=== PATIENT | female | born 1995 | race Two or more races ===

== ENCOUNTER 2022-11-21 18:41 | Emergency (ER) | payer OTHER ==
[~2022-11-21] VITALS: Ht 152.4 cm; Wt 54.4 kg
--- NOTE | 2022-11-21 19:05 | NUR ---
BIBS C/O COUGH, CONGESTION, CHILLS, DIARRHEA X 2 DAYS.
--- NOTE | 2022-11-21 19:30 | NUR ---
SWAB FOR COVID19 SENT TO LAB
--- NOTE | 2022-11-21 22:25 | NUR ---
Patient discharged to home in stable condition. Written and verbal after care instructions given. Patient verbalizes understanding of instruction.
[2022-11-21 22:41] VITALS: BP 110/60
== END 2022-11-21 22:25 | disposition home or self-care (01) ==
LOC: ER 18:43
DX: B34.9 Viral infection, unspecified (principal); Z60.2 Problems related to living alone; Z20.822 Contact with and (suspected) exposure to COVID-19; Z88.8 Allergy status to other drugs, medicaments and biological substances
CPT/HCPCS: 99283; 87426; C9803